=== PATIENT | male | born 2005 | race Caucasian/White ===

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

== ENCOUNTER 2025-03-06 15:33 | Emergency (ER) | payer OTHER ==
[~2025-03-06] VITALS: Ht 177.8 cm; Wt 68.0 kg
[2025-03-06] MEDS ORDERED: OMNICEF300 MG PO (15:59)
[2025-03-06] MEDS ORDERED: OFLOXACIN 10 ML10 M2 OT (15:59)
[2025-03-06] MEDS ORDERED: CEFDINIR 300 MG CAP PO ONE (16:00)
[2025-03-06] MEDS ORDERED: OFLOXACIN 0.3% 5 ML BOTTLE OT ONE (16:00)
== END 2025-03-06 16:13 | disposition home or self-care (01) ==
LOC: ED 15:33
DX: H66.91 Otitis media, unspecified, right ear (principal); H60.91 Unspecified otitis externa, right ear; Z88.1 Allergy status to other antibiotic agents; Z79.899 Other long term (current) drug therapy

== ENCOUNTER 2025-06-25 15:14 | Emergency (ER) | payer OTHER ==
[~2025-06-25] VITALS: Ht 177.8 cm; Wt 70.3 kg
[~2025-06-25 15:14] MED LIST changes: +OFLOXACIN 10 ML10 M2 OT; +OMNICEF300 MG PO
[2025-06-25] MEDS ORDERED: SODIUM CHLORIDE 0.9% 500 ML IV ONE (15:50)
[2025-06-25] MEDS ORDERED: Metoclopramide Hydrochloride 10 MG/2 ML VIAL IV ONE (15:50)
[2025-06-25] MEDS ORDERED: diphenhydrAMINE hydrochloride 50 MG/ML VIAL IV ONE (15:50)
[2025-06-25 15:58] LABS: BASO # 0.0 10*3/uL (0.0-0.1); BASO % 0.7 % (0.0-1.0); EOS # 0.2 10*3/uL (0.0-0.4); EOS % 2.6 % (1.0-4.0); MEAN CELL VOLUME 90.5 fl (80.0-94.0); MEAN CORPUSCULAR HGB 30.8 pg (27.0-31.0); MEAN PLATELET VOLUME 9.9 fl (9.6-12.3); MONO # 0.6 10*3/uL (0.1-1.0); MONO % 9.5 % (3.0-9.0); NEUT # 3.3 10*3/uL (2.3-7.9); NEUT % 53.0 % (47.0-73.0); NUCLEATED RED BLOOD CELL 0.0 % (0.0-0.0); NUCLEATED RED BLOOD CELL 0.0 10*3/uL (0.0-0.0); PLATELET COUNT AUTOMATED 241 10*3/uL (130-400); RED CELL DISTRI WIDTH 11.5 % (0-14.5)
[2025-06-25 16:04] LABS: BILIRUBIN Negative (Negative); BLOOD Negative (Negative); CLARITY Turbid (Clear); COLOR Yellow (Yellow); KETONE Negative (Negative); LEUKO ESTERASE Negative (Negative); NITRITE Negative (Negative); PH 8.0 (4.5-8.0); SPECIFIC GRAVITY 1.020 (1.001-1.030); UROBILINOGEN 0.2 E.U./dl (0.0-1.0)
[2025-06-25 16:10] LABS: URINE AMPHETAMINES Negative (1000ng/ml); URINE BARBITURATES Negative (200ng/ml); URINE BENZODIAZEPINES Negative (200ng/ml); URINE CANNABINOIDS (THC) Positive (50ng/ml); URINE COCAINE Negative (300ng/ml); URINE METHADONE Negative (300ng/ml); URINE OPIATES Negative (300ng/ml); URINE PHENCYCLIDINE Negative (25ng/ml)
[2025-06-25 16:29] LABS: BACTERIA 2+
[2025-06-25 16:51] LABS: BUN 10 mg/dl (9-23); SGPT/ALT 8 U/L (5-49)
[2025-06-25 16:59] LABS: ETHYL ALCOHOL < 3.0 mg/dl (<3)
[2025-06-25] MEDS ORDERED: REGLAN10 M1 PO (17:20)
[2025-06-25] MEDS ORDERED: OMEPRAZOLE40 MG PO (17:20)
[2025-06-25] MEDS ORDERED: Ondansetron4 MG PO (17:20)
== END 2025-06-25 17:33 | disposition home or self-care (01) ==
LOC: ED 15:14
PROVIDERS: Emergency Medicine
DX: A08.4 Viral intestinal infection, unspecified (principal); R10.9 Unspecified abdominal pain; F10.10 Alcohol abuse, uncomplicated; J45.909 Unspecified asthma, uncomplicated; Z88.1 Allergy status to other antibiotic agents; Y90.9 Presence of alcohol in blood, level not specified